=== PATIENT | female | born 1970 | race Hispanic/Latino ===

== ENCOUNTER 2021-04-16 07:57 | Day surgery (SDC) | payer OTHER ==
[2021-04-12 13:01] LABS: BASOPHILS % (AUTO) 0.8 % (0.0-5.0); HEMATOCRIT 40.4 % (36-48); LYMPHOCYTES % (AUTO) 32.7 % (21.0-51.0); MEAN CORPUSCULAR HEMOGLOBIN 28.8 pg (27.0-33.0); MEAN CORPUSCULAR HGB CONC 31.7 g/dL (32.0-36.0); MONOCYTES % (AUTO) 6.7 % (3.0-13.0); NEUTROPHILS % (AUTO) 54.1 % (40.0-77.0); PLATELET COUNT (AUTO) 417 K/uL (130-400); RED BLOOD CELL COUNT(AUTO) 4.44 MIL/uL (4.00-5.50); RED CELL DISTRIBUTION WIDTH 13.8 % (11.0-15.5); WHITE BLOOD COUNT (AUTO) 10.1 K/uL (4.8-10.8)
[2021-04-12 13:10] LABS: CREATININE 0.7 mg/dL (0.5-1.5); POTASSIUM 4.4 mmol/L (3.5-5.1)
[2021-04-12 13:14] LABS: PROTHROMBIN TIME 10.9 SEC (9.6-11.6)
[2021-04-12 13:15] LABS: PARTIAL THROMBOPLASTIN TIME 25.8 SEC (26.3-35.5)
[2021-04-13 11:05] VITALS: BP 192/94
[~2021-04-16 07:57] MED LIST: LOPE2CAP PO; LOSA50TA64 PO; METF-910 PO; VITA-164 PO; vitamin b6 PO
[2021-04-16 08:18] VITALS: BP 166/89
[2021-04-16] MEDS ORDERED: 0.9%NACL 1000ML 1,000 ML IV ONE (08:28)
[2021-04-16] MEDS ORDERED: HEPARIN 1,000 UNIT VIAL ONE (12:28)
[2021-04-16] MEDS ORDERED: LIDOCAINE 1%-EPI 1:100,000 20 ML VIAL IJ ONE (12:28)
[2021-04-16] MEDS ORDERED: FENTANYL CITRATE PF 50 MCG/1 ML 2ML VIAL ONE (12:28)
[2021-04-16] MEDS ORDERED: MIDAZOLAM HCL 1 MG/ML 2ML VIAL ONE (12:28)
[2021-04-16] MEDS ORDERED: LIDOCAINE HCL 1% MDV 50ML VIAL ONE (12:29)
[2021-04-16] MEDS ORDERED: OCTYL 2-CYANOACRYLATE 1 EACH TP ONE (13:23)
[2021-04-16 13:55] VITALS: BP 178/87
[2021-04-16 14:10] VITALS: BP 165/81
== END 2021-04-16 15:00 | disposition home or self-care (01) ==
LOC: DAH 07:57
PROVIDERS: ATTEND Internal Medicine
DX: Z51.11 Encounter for antineoplastic chemotherapy (principal); C18.6 Malignant neoplasm of descending colon; E11.9 Type 2 diabetes mellitus without complications; I10 Essential (primary) hypertension; Z79.84 Long term (current) use of oral hypoglycemic drugs; Z90.49 Acquired absence of other specified parts of digestive tract; Z79.899 Other long term (current) drug therapy; Z79.01 Long term (current) use of anticoagulants
CPT/HCPCS: 36415; 36561; 77001; 80048; 82948 ×2; 85025; 85610; 85730; A4215; A4221; A4222; A4223; A4663; C1788; C1894; J1644 ×2; J2250; J3010; J3490 ×2; J7030; 99156; 99157

== ENCOUNTER 2021-04-28 13:53 | Emergency (ER) | payer OTHER ==
[~2021-04-28] VITALS: Ht 152.4 cm; Wt 57.6 kg
[2021-04-28 13:55] VITALS: BP 141/102
[2021-04-28 18:10] VITALS: BP 123/75
== END 2021-04-28 18:47 | disposition home or self-care (01) ==
LOC: EDH 13:53
DX: Z45.2 Encounter for adjustment and management of vascular access device (principal); E11.9 Type 2 diabetes mellitus without complications; I10 Essential (primary) hypertension; Z79.899 Other long term (current) drug therapy; Z79.84 Long term (current) use of oral hypoglycemic drugs; Z90.49 Acquired absence of other specified parts of digestive tract; Z85.038 Personal history of other malignant neoplasm of large intestine
CPT/HCPCS: 71045

== ENCOUNTER → 2023-08-15 | Outpatient (CLI) | payer BC, OTHER ==
[~2023-08-15] MED LIST changes: -VITA-164 PO; +VITA-348 PO
== END | disposition home or self-care (01) ==
LOC: RAH 13:45
PROVIDERS: ATTEND Family Medicine
DX: Z12.31 Encounter for screening mammogram for malignant neoplasm of breast (principal)
CPT/HCPCS: 77067